=== PATIENT | male | born 1985 | race Caucasian/White ===

== ENCOUNTER 2020-04-26 06:53 | Emergency (ER) | payer OTHER ==
[2020-04-26] MEDS ORDERED: Ketorolac Tromethamine 30 MG/ML VIAL ONE (07:37)
[2020-04-26] MEDS ORDERED: Ondansetron PF 4 MG/2 ML Vial ONE (07:37)
[2020-04-26 07:43] LABS: #Eosinphils 0.1 thou/uL (0.0-0.7); #Lymphocytes 1.6 thou/uL (1.20-3.40); #Monocytes 0.5 thou/uL (0.11-0.59); #Neutrophils 3.6 thou/uL (1.40-6.50); %Basophils 0.8 % (0.0-1.0); %Eosinophils 2.2 % (0.0-10.0); %Lymphocytes 26.9 % (21.0-51.0); %Monocytes 8.5 % (0.0-10.0); %Neutrophils 61.6 % (42.0-75.0); Hemoglobin 14.3 g/dL (14.0-18.0); Mean Corpuscular HGB CONC 35.2 g/dL (32.0-36.0); Mean Corpuscular Hemoglobin 30.1 pg (27.0-31.0); Mean Corpuscular Volume 85.5 fL (78.0-98.0); Mean Platelet Volume 6.8 fL (7.4-10.4); Platelet Count 256 thou/uL (130-400); RBC Distribution Width 11.7 % (11.5-14.5); Red Blood Cell (RBC) Count 4.75 mill/uL (4.70-6.10); White Blood Cell (WBC) Count 5.8 thou/uL (4.8-10.8)
[2020-04-26 08:03] LABS: ALT (SGPT) 30 U/L (8-55); AST (SGOT) 25 U/L (5-34); Albumin 4.3 g/dL (3.5-5.0); Alkaline Phosphatase 72 U/L (40-110); Anion Gap 15 mmol/L (10-20); BUN (Urea Nitrogen) 17 mg/dL (8.9-20.6); Bilirubin, Total 0.5 mg/dL (0.2-1.2); Calc. Creatinine Clearance 0 mL/min (70-130); Calcium 8.9 mg/dL (7.8-10.44); Carbon Dioxide 25 mmol/L (22-29); Chloride 104 mmol/L (98-107); Globulin 2.9 g/dL (2.4-3.5); Glucose 119 mg/dL (70-105); Potassium 3.9 mmol/L (3.5-5.1); Protein, Total 7.2 g/dL (6.0-8.3); Sodium 140 mmol/L (136-145)
--- NOTE | 2020-04-26 08:03 | CT ---
CT Abdomen Pelvis WO Con: 04/26/2020 7:44 AM HISTORY: Flank pain. Patient has an 8 mm kidney stone and is waiting to do surgery. COMPARISON: 03/28/2020 TECHNIQUE: Multiple contiguous axial images were obtained and a CT of the abdomen and pelvis without IV contrast . Coronal and sagittal reformats were performed. FINDINGS: This examination is limited for the evaluation of solid organs and vascular structures due to the lac k of intravenous contrast. Lower Chest: within normal limits. Abdomen: Liver: Diffuse fatty infiltration. Bile Ducts: Normal caliber. Gallbladder: No calcified gallstones. Normal caliber wall. Pancreas: within normal limits. Spleen: within normal limits. Adrenals: within normal limits. Kidneys: Mild right hydronephrosis. Pelvis: Reproductive Organs: No pelvic masses. Ureters: There is an 8 mm calcification in the proximal right ureter/renal pelvis. Stranding changes are seen surrounding the ureter in this location. Bladder: within normal limits. Bowel: Normal caliber. Normal appendix. Mesenteric Lymph Nodes: No enlarged mesenteric lymph nodes. Peritoneum: No ascites or free air, no fluid collection. Vessels: Normal caliber aorta Retroperitoneum: within normal limits. Abdominal Wall: within normal limits. Bones: Unremarkable. IMPRESSION: 1. Right sided ureteral calcification with mild right hydronephrosis 2. Fatty liver
[2020-04-26 08:38] LABS: Bacteria/HPF None Seen HPF (None Seen); Bilirubin Negative (Negative); Blood, Urine 3+ (Negative); Clarity Clear (Clear); Glucose, Urine (Dipstick) Normal (Negative); Ketone, Urine Negative (Negative); Leukocyte Negative Leu/uL (Negative); Nitrite Negative (Negative); Protein, Urine (Dipstick) 100 mg/dL (Neg-Trace); RBC/HPF Greater than 50 HPF (0-3); Specific Gravity, Urine 1.026 (1.002-1.036); Squamous Epithelial None Seen HPF (0-3); Urobilinogen Normal mg/dL (Less than 2)
== END 2020-04-26 09:59 | disposition home or self-care (01) ==
LOC: ERS 06:53
DX: N13.2 Hydronephrosis with renal and ureteral calculous obstruction (principal)
CPT/HCPCS: 74176; 80053; 81003; 81015; 85025; 96374; 96375; J1885; J2405

== ENCOUNTER 2020-04-27 13:29 | Day surgery (SDC) | payer OTHER ==
[~2020-04-27 13:29] MED LIST: Dexamethasone 20 MG/5 ML VIAL ONE; Ketorolac Tromethamine 30 MG/ML VIAL ONE; Lidocaine 1% PF 5 ML VIAL ONE; Ondansetron PF 4 MG/2 ML Vial ONE; PHENYLEPHRINE-NS 100 MCG/ML 10 ML SYRINGE ONE; PROPOFOL 200 MG/20 ML VIAL ONE; ePHEDrine 50 MG/ML VIAL ONE
[2020-04-27] MEDS ORDERED: Iothalamate Meglumine 60% 50 ML VIAL FS ONE (13:51)
[2020-04-27] MEDS ORDERED: Fentanyl 250 MCG/5 ML VIAL ONE (13:53)
[2020-04-27] MEDS ORDERED: Fentanyl 100 MCG/2 ML VIAL ONE ×2 (13:58→15:13)
--- NOTE | 2020-04-27 15:13 | RAD ---
RETROGRADE PYELOGRAM: 04/27/20 Nine fluoroscopic images are presented from the OR. INDICATIONS: Fluoroscopic imaging during retrograde pyelogram procedure for stones and stent placement. FINDINGS/IMPRESSION: These images demonstrate wire placed into the right ureter with catheter placed. Opacification of the right collecting structures is noted. Final image demonstrates placement of a double pigtail right u reteral stent. POS: AGW
[2020-04-27] MEDS ORDERED: HYDROcodone/Acetaminophen 5/325 mg Tablet ONE (16:25)
--- NOTE | 2020-04-27 16:48 | OP ---
DATE OF PROCEDURE: 04/27/2020 PREOPERATIVE DIAGNOSIS: Right proximal ureteral stone. POSTOPERATIVE DIAGNOSIS: Right proximal ureteral stone. PROCEDURES PERFORMED: 1. Cystoscopy. 2. Right retrograde. 3. Right stent. ANESTHETIC: General. ESTIMATED BLOOD LOSS: Minimal. FINDINGS: He had a 7- to 8-mm proximal right ureteral stone. DRAINS PLACED: A 4.8 x 28 cm, string was not attached. DESCRIPTION OF PROCEDURE: After obtaining written and verbal consent from the patient, he was taken to the operating suite. He was placed in a supine position on the treatment table. PlexiPulses were placed on his lower extremities and turned on. He was given a general anesthetic and oral obturator intubation. He was placed in dorsal lithotomy position and sterilely prepped and draped. Fluoroscopy unit was positioned over him. Crimp Setter was taken. A very long ureter. Cystoscopy was initially attempted with a 22-German sheath, but it was a little tight, so we backed off to a 17-German and this easily passed through the male urethra into the bladder. The bladder was examined. No other abnormalities noted. We then backed this out, went in with a 19-German, which also easily went in, and then we fed a guidewire up the right side, open-ended Pollack catheter over the guidewire to just below the area of the stone, injected contrast by it, which went fairly easily by it, and then placed the guidewire by it, and removed the Pollack catheter. Over the Pollack catheter, we passed a 4.8 x 28 cm double-J stent, pushing up to place it with aid of a pusher, so its proximal end coiled in the renal pelvis and its distal end coiled in the bladder when the wire was removed. The bladder was then drained. The patient was taken out of the dorsal lithotomy position, awakened, extubated, and taken by stretcher to recovery room. Job ID: [id number]
== END 2020-04-27 17:20 | disposition home or self-care (01) ==
LOC: SDC 13:29
PROVIDERS: ATTEND Urology
PROC: 0T768DZ Dilation of Right Ureter with Intraluminal Device, Via Natural or Artificial Opening Endoscopic (ICD-10-PCS; principal; 2020-04-27)
DX: N20.1 Calculus of ureter (principal); F41.9 Anxiety disorder, unspecified; Z88.2 Allergy status to sulfonamides
CPT/HCPCS: 74420; 81003; 81015; 87086; 96374; 96375; J0690; J1100; J1885; J2405; J2704; J3010; J3490

== ENCOUNTER 2020-05-01 10:19 | Day surgery (SDC) | payer OTHER ==
[2020-04-30 14:05] VITALS: BMI 31.9
[~2020-05-01 10:19] MED LIST changes: -Ketorolac Tromethamine 30 MG/ML VIAL ONE; -PHENYLEPHRINE-NS 100 MCG/ML 10 ML SYRINGE ONE; -ePHEDrine 50 MG/ML VIAL ONE
[2020-05-01] MEDS ORDERED: Levofloxacin 500 mg/D5W 100 ml Premix Bag ONE (10:25)
[2020-05-01] MEDS ORDERED: Fentanyl 100 MCG/2 ML VIAL ONE ×2 (10:29→12:02)
[2020-05-01] MEDS ORDERED: Iothalamate Meglumine 60% 50 ML VIAL FS ONE (10:31)
[2020-05-01] MEDS ORDERED: Ondansetron PF 4 MG/2 ML Vial ONE (12:02)
--- NOTE | 2020-05-01 12:05 | OP ---
DATE OF PROCEDURE: 05/01/2020 PREOPERATIVE DIAGNOSIS: Right proximal ureteral stone. POSTOPERATIVE DIAGNOSIS: Right proximal ureteral stone. PROCEDURES PERFORMED: Right ureteroscopy, laser lithotripsy, basket extraction of stone, intraoperative interpretation of radiologic imaging, retrograde pyelogram, and 4.8 x 26 double-J ureteral stent placement with string. ANESTHESIA: General. COMPLICATIONS: None. ESTIMATED BLOOD LOSS: None. SPECIMEN: Right ureteral stone fragments. DESCRIPTION OF PROCEDURE: After informed consent, the patient was taken to the operating room, transferred to the table under his own power. Anesthesia was established. A time-out was performed showing correct patient, site, and procedure. Preoperative antibiotics were administered. He was prepped and draped in the lithotomy position. I began by inserting the rigid cystoscope through the urethra noting normal course and caliber of the urethra into the bladder. The indwelling stent was grasped and brought out through the urethral meatus. A wire was passed through this into the renal pelvis under fluoroscopic guidance. An access sheath was passed over this up to the level of the stone seen on imaging and retrograde pyelogram performed through this showing filling defect at the level of the stone with no significant hydronephrosis or filling defect of the collecting system. The flexible ureteroscope was guided through the access sheath into the proximal ureter where the stone was quickly encountered and fragmented with a 273 micron laser fiber. A 1.9 cm Nitinol basket was used to retrieve all clinically significant stone fragments. The collecting system and proximal ureter were re-examined noting no further clinically significant stone fragments that required removal or treatment. The scope was withdrawn and the collecting system filled with contrast through the access sheath. The wire was then replaced before removing the access sheath and placing a 4.8 x 26 double-J ureteral stent with string. Completion images were taken. The string was taped to his penis with a Tegaderm. He was then awoken from anesthesia, transferred back to his hospital bed, and taken to PACU in stable condition, where he will be discharged home upon recovery. Job ID: [id number]
[2020-05-01] MEDS ORDERED: Ketorolac Tromethamine 30 MG/ML VIAL ONE (13:08)
[2020-05-01] MEDS ORDERED: Oxybutynin 5 MG TAB ONE (13:08)
--- NOTE | 2020-05-01 13:57 | RAD ---
Retrograde pyelogram: 05/01/2020 HISTORY: Ureteroscopy, cystoscopy FINDINGS: 6 images are provided. Images demonstrate subcentimeter calcification inferior to the 12th rib on the right suggesting a proximal right-sided renal stone or ureteral stone. Later images demonstrate placement of a double-J ureteral stent and apparent removal of that stone. IMPRESSION: Findings suggesting removal of a proximal right ureteral stone with placement of a double -J right ureteral stent.
== END 2020-05-01 13:52 | disposition home or self-care (01) ==
LOC: SDC 10:19
PROVIDERS: ATTEND Urology
PROC: 0TC38ZZ Extirpation of Matter from Right Kidney Pelvis, Via Natural or Artificial Opening Endoscopic (ICD-10-PCS; principal; 2020-05-01)
PROC: 0T768DZ Dilation of Right Ureter with Intraluminal Device, Via Natural or Artificial Opening Endoscopic (ICD-10-PCS; principal; 2020-05-01)
DX: N20.1 Calculus of ureter (principal); F90.9 Attention-deficit hyperactivity disorder, unspecified type; F32.9 Major depressive disorder, single episode, unspecified; Z79.899 Other long term (current) drug therapy; Z88.2 Allergy status to sulfonamides
CPT/HCPCS: 74420; 82365; 88300; J1100; J1885; J1956; J2405; J2704; J3010

== ENCOUNTER 2020-05-02 06:56 | Outpatient (CLI) | payer OTHER ==
[2020-05-03 02:42] LABS: SARS-CoV-2 MS2 Positive; SARS-CoV-2 N Gene Negative; SARS-CoV-2 S Gene Negative; SARS-CoV-2 by NAA Not Detected (NotDetected); SARS-CoV-2 orf1ab Negative
== END 2020-05-02 06:57 | disposition home or self-care (01) ==
LOC: LABBT 06:56
PROVIDERS: ATTEND Student in an Organized Health Care Education/Training Program
DX: J35.01 Chronic tonsillitis (principal); R13.10 Dysphagia, unspecified; J35.8 Other chronic diseases of tonsils and adenoids; R68.89 Other general symptoms and signs; J30.9 Allergic rhinitis, unspecified; J34.2 Deviated nasal septum; Z20.828 Contact with and (suspected) exposure to other viral communicable diseases
CPT/HCPCS: 87635; U0003

== ENCOUNTER 2020-05-08 06:26 | Day surgery (SDC) | payer OTHER ==
[2020-05-02 13:44] VITALS: BMI 31.1
[2020-05-08] MEDS ORDERED: Midazolam HCl 2 mg/2 ml Vial ONE (09:07)
[2020-05-08] MEDS ORDERED: Fentanyl 100 MCG/2 ML VIAL ONE (09:07)
[2020-05-08] MEDS ORDERED: Glycopyrrolate 0.2 MG/ML 5 ML SYRINGE ONE (09:59)
[2020-05-08] MEDS ORDERED: Rocuronium Bromide 10 MG/ML (10ML VIAL) ONE (09:59)
[2020-05-08] MEDS ORDERED: PROPOFOL 200 MG/20 ML VIAL ONE (09:59)
[2020-05-08] MEDS ORDERED: PHENYLEPHRINE-NS 100 MCG/ML 10 ML SYRINGE ONE (09:59)
--- NOTE | 2020-05-09 11:31 | OP ---
DATE OF PROCEDURE: 05/08/2020 PROCEDURE PERFORMED: Tonsillectomy. PREOPERATIVE DIAGNOSIS: Recurrent tonsillitis. POSTOPERATIVE DIAGNOSIS: Recurrent tonsillitis and tonsillar hypertrophy. PERMIT: Procedures, benefits and risks including those of bleeding, infection, injury to anesthesia, allergic reaction, and recurrent oropharyngeal bleeding causing return to operating room and cautery were discussed with the patient and family, who expressed understanding of the information and consent form was signed and witnessed. The paper copy of the consent form is not available for review in the paper chart. INDICATIONS: Patient presenting to the clinic with acute tonsillitis, requiring antibiotic as well as chronic tonsillitis and pain is well controlled. DESCRIPTION OF OPERATION: The patient was brought to the operating room, laid supine on the operating room table. Anesthesia was induced. A complete time-out was performed before commencement of the surgical procedure. The table was turned 90 degrees. The patient was suspended using a Prakash-Geo mouth gag. A red rubber catheter was used to place in the nares and used to examine the nasopharynx. Attention was turned to the right tonsil. The tonsil was removed first by incising the anterior pillar and then dissecting from its inferior fossa of bridging vessels and fibers were cauterized with the Bovie on a setting of 15, so was removed anatomically in its entirety. Hemostasis was achieved using suction cautery. Attention was turned to the left tonsil. Left tonsil was removed in the identical manner. The nasopharynx was irrigated and suctioned. The stomach contents were suctioned. The patient was turned back to anesthesia for emergence. Job ID: [id number]
== END 2020-05-08 12:55 | disposition home or self-care (01) ==
LOC: SDC 06:26
PROVIDERS: ATTEND Student in an Organized Health Care Education/Training Program
PROC: 0CTPXZZ Resection of Tonsils, External Approach (ICD-10-PCS; principal; 2020-05-08)
DX: J03.91 Acute recurrent tonsillitis, unspecified (principal); J35.01 Chronic tonsillitis; J35.8 Other chronic diseases of tonsils and adenoids; J30.9 Allergic rhinitis, unspecified; J34.2 Deviated nasal septum; F90.9 Attention-deficit hyperactivity disorder, unspecified type; F32.9 Major depressive disorder, single episode, unspecified; Z79.2 Long term (current) use of antibiotics; Z79.899 Other long term (current) drug therapy; Z88.1 Allergy status to other antibiotic agents; Z88.2 Allergy status to sulfonamides
CPT/HCPCS: 88304; J2250; J2704; J3010

== ENCOUNTER 2021-04-15 07:03 | Outpatient (CLI) | payer OTHER ==
[2021-04-16 10:59] LABS: SARS-CoV-2 PCR by NAA Not Detected (NotDetected)
== END 2021-04-15 07:04 | disposition home or self-care (01) ==
LOC: LABBT 07:03
PROVIDERS: ATTEND Internal Medicine
DX: Z01.812 Encounter for preprocedural laboratory examination (principal); R13.19 Other dysphagia; R10.13 Epigastric pain; Z20.822 Contact with and (suspected) exposure to COVID-19
CPT/HCPCS: U0003; U0005

== ENCOUNTER 2021-04-19 10:02 | Day surgery (SDC) | payer OTHER ==
[2021-04-18 15:40] VITALS: BMI 31.1
[2021-04-19] MEDS ORDERED: Lidocaine 1% PF 5 ML VIAL ONE (12:53)
[2021-04-19] MEDS ORDERED: PROPOFOL 200 MG/20 ML VIAL ONE (12:53)
== END 2021-04-19 14:00 | disposition home or self-care (01) ==
LOC: SDC 10:02
PROVIDERS: ATTEND Internal Medicine
PROC: 0DB38ZX Excision of Lower Esophagus, Via Natural or Artificial Opening Endoscopic, Diagnostic (ICD-10-PCS; principal; 2021-04-19)
DX: K21.00 Gastro-esophageal reflux disease with esophagitis, without bleeding (principal); K22.10 Ulcer of esophagus without bleeding; K44.9 Diaphragmatic hernia without obstruction or gangrene; R13.19 Other dysphagia; Z79.899 Other long term (current) drug therapy; Z88.2 Allergy status to sulfonamides
CPT/HCPCS: 88305; 88312; J2704

== ENCOUNTER 2023-03-22 17:00 | Outpatient (CLI) | payer BC | END 2023-03-22 17:01 | disposition home or self-care (01) | LOC: SLEEPLAB 17:00 | PROVIDERS: ATTEND Nurse Practitioner Family | DX: G47.33 Obstructive sleep apnea (adult) (pediatric) (principal); F32.A Depression, unspecified; F41.9 Anxiety disorder, unspecified; E66.9 Obesity, unspecified; Z68.34 Body mass index [BMI] 34.0-34.9, adult; R06.83 Snoring; G47.00 Insomnia, unspecified | CPT/HCPCS: 95811 ==